=== PATIENT | female | born 1995 | race Hispanic/Latino ===

== ENCOUNTER 2019-11-18 01:28 | Inpatient (IN) | payer MEDICAID ==
[2019-11-18 01:40] VITALS: BMI 25.9
[2019-11-18] MEDS ORDERED: hydrALAZINE 20 MG/ML VIAL SLOW IVP PRN ×3 (02:17→12:55)
[2019-11-18] MEDS ORDERED: HYDROcodone/Acetaminophen 5/325 mg Tablet PO PRN (06:40)
[2019-11-18] MEDS ORDERED: NS / Oxytocin 40 units/1000ml 1,000 ML IV PRN ×2 (06:40→12:17)
[2019-11-18] MEDS ORDERED: Butorphanol Tartrate 1 MG/ML VIAL SLOW IVP PRN (06:40)
[2019-11-18] MEDS ORDERED: Ondansetron PF 4 MG/2 ML Vial IVP PRN ×2 (06:40→08:28)
[2019-11-18] MEDS ORDERED: Lidocaine 1% (PF) 30 ML VIAL SC PRN (06:40)
[2019-11-18] MEDS ORDERED: Ibuprofen 800 MG TAB PO PRN (06:40)
[2019-11-18] MEDS ORDERED: Lactated Ringer's 1,000 ML IV SCH ×2 (06:45)
[2019-11-18] MEDS ORDERED: Penicillin G Potassium 5 MILL.UNITS in Sodium Chloride 0.9% 100 ML IVPB SCH (06:45)
[2019-11-18] MEDS ORDERED: Penicillin G 2.5 MILL.units 2.5 MILL.UNITS in Premix Bag 1 BAG IVPB SCH (06:45)
--- NOTE | 2019-11-18 07:08 | PRG ---
DATE OF SERVICE: 11/18/2019 PRIMARY COMMUNICATIONS ADVISOR: Tanika Marmolejo MD CHIEF COMPLAINT: Abdominal pain. HISTORY OF PRESENT ILLNESS: The patient is a 24-year-old G2, P1 female with an intrauterine at 37 weeks and 3 days, presenting to Labor and Delivery with a 2-hour history of worsening abdominal pain. She is reporting contractions about every 5 to 6 minutes. She denies any vaginal bleeding or leakage of fluid. She denies any fever, fall, cough, headache, chest pain, shortness of breath, nausea, vomiting, diarrhea, constipation, hip problems, knee problems, muscle weakness. She denies urinary urgency or frequency. PAST MEDICAL HISTORY: Anemia. PAST SURGICAL HISTORY: Negative. ALLERGIES: NO KNOWN DRUG ALLERGIES. SOCIAL HISTORY: Denies drug alcohol or tobacco use. MEDICATIONS: vitamins. OBSTETRICAL LABS: Unavailable at the time of dictation. REVIEW OF SYSTEMS: Per HPI. PHYSICAL EXAMINATION: VITAL SIGNS: Blood pressure is 116/73, heart rate of 69, temperature 97.8, respiratory rate of 18. GENERAL: She appears to be in no acute distress. She is alert, oriented, cooperative, and pleasant to interact with. HEENT: Head is normocephalic and atraumatic. LUNGS: Clear to auscultation bilaterally. HEART: Has a regular rate and rhythm. ABDOMEN: Gravid, soft, nontender. EXTREMITIES: Nontender. Has some bilateral edema typical with . : The cervix was checked by the nursing staff, it was 3, 70, -3 station and is changed to 5, 80, -3 station. heart tracing shows the fetus with a baseline in 120s with moderate long-term variability, positive 15 x 15 accelerations, no decelerations. Contractions about every 2 to 5 minutes with some irritability underneath. ASSESSMENT AND PLAN: The patient is a 24-year-old G2, P1 female with an intrauterine at 37 weeks and 3 days, showing evidence of labor. Fetus has a category 1 tracing and a reactive NST. The patient is being admitted to Dr. Marmolejo for management. Job ID: [id number]
[2019-11-18] MEDS ORDERED: Fentanyl 4 mcg/Bup 0.1% Cadd 100 ML ONE (07:14)
[2019-11-18] MEDS ORDERED: Misoprostol 200 MCG TAB ONE (07:39)
[2019-11-18 07:46] LABS: Hemoglobin 9.7 g/dL (12.0-16.0); Mean Corpuscular HGB CONC 33.8 g/dL (32.0-36.0); Mean Corpuscular Hemoglobin 26.3 pg (27.0-31.0); Mean Corpuscular Volume 77.7 fL (78.0-98.0); Mean Platelet Volume 12.5 fL (7.4-10.4); Platelet Count 182 thou/uL (130-400); RBC Distribution Width 14.4 % (11.5-14.5); White Blood Cell (WBC) Count 10.6 thou/uL (4.8-10.8)
[2019-11-18 07:49] LABS: HBSAg Index 0.17 S/CO (0-0.99); Hep B Surf Ag Non-Reactive S/CO (NonReactive); Syphilis Antibody Nonreactive (Nonreactive); Syphilis Antibody Index 0.04 S/CO (<1.00 Non-Reactive)
[2019-11-18] MEDS ORDERED: Fentanyl 100 MCG/2 ML VIAL ONE (08:00)
[2019-11-18] MEDS ORDERED: Promethazine HCl 25 MG/ML VIAL IM PRN (08:28)
[2019-11-18] MEDS ORDERED: EPHEDRINE 25 MG/5 ML SYRINGE SLOW IVP PRN (08:28)
[2019-11-18] MEDS ORDERED: Naloxone HCl 0.4 mg/ml Vial IVP PRN ×2 (08:28)
[2019-11-18] MEDS ORDERED: diphenhydrAMINE 50 MG/ML VIAL IVP PRN (08:28)
[2019-11-18] MEDS ORDERED: Lactated Ringer's 500 ML IV PRN (08:28)
[2019-11-18] MEDS ORDERED: Acetaminophen 325 MG TAB PO PRN (08:28)
[2019-11-18] MEDS ORDERED: Fentanyl 4 mcg/Bupivacaine 0.1% Cassette 100 ML EPIDURAL SCH (08:30)
[2019-11-18] MEDS ORDERED: Communication Order-Pharmacy FS SCH (08:30)
--- NOTE | 2019-11-18 10:01 | PDOC.EVN ---
Event Note - Event Note Event Note: Asked to AROM by Dr. Marmolejo. FHTs stable, no decels. Irregular UCs seen. SVE /-1, 0 vtx. AROM- clear.
[2019-11-18] MEDS ORDERED: NS w/ Oxytocin 10 units 500 ML ONE (10:30)
[2019-11-18] MEDS ORDERED: NS w/ Oxytocin 10 units 500 ML IV SCH (12:30)
--- NOTE | 2019-11-18 12:54 | PDOC.OPDEL ---
OB Operative/Delivery Note Delivery Dr/Surgeon: Jaleel Pre-Delivery Diagnosis: active labor Procedure/Post Delivery Dx: spontaneous vaginal delivery Weeks gestation: 37 Anesthesia: epidural - Findings A Sex: male - 1 min: 7 - 5 min: 9 - Additional Findings/Plan Placenta delivered: spontaneous Repaired Obstetrical Laceration: none Estimated blood loss: 250ml qbl Compilations/Other Findings: npne Post delivery plan: routine recovery
[2019-11-18] MEDS ORDERED: Milk Of Magnesia 30 ML UDCUP PO PRN (12:55)
[2019-11-18] MEDS ORDERED: Adacel (T-DAP) 0.5 ML SYRINGE IM ONE (12:55)
[2019-11-18] MEDS ORDERED: Bisacodyl 10 MG SUPP PR PRN (12:55)
[2019-11-18] MEDS ORDERED: Lanolin Ointment 7 GM TUBE TOP PRN (12:55)
[2019-11-18] MEDS ORDERED: NS / Oxytocin 40 units/1000ml 1,000 ML IV SCH (13:00)
[2019-11-18] MEDS: Ferrous Sulfate 325 MG TAB PO SCH (17:18)
[2019-11-18] MEDS ORDERED: traMADol HCl 50 MG TAB PO PRN (17:29)
[2019-11-18] MEDS: Ibuprofen 800 MG TAB PO PRN (17:38)
[2019-11-18] MEDS: Docusate Calcium (SURFAK) 240 MG CAP PO SCH (23:03)
[2019-11-19 06:08] VITALS: TEMP 97.6
--- NOTE | 2019-11-19 06:39 | PDOC.PP ---
Post Progress Note Post Day #: PPD1 Subjective: Resting, no c/o. PO intake tolerated: yes Flatus: yes Ambulation: yes Vital Signs (12 hours) Temp Pulse Resp BP Pulse Ox 11/19/19 05:20 97.6 F 62 16 105/65 11/19/19 00:20 98.2 F 62 16 103/68 11/18/19 19:50 98.0 F 65 16 102/59 L 98 Weight Weight 62.142 kg - Physical Examination General: NAD Respiratory: non-labored breathing Neurological: no gross focal deficits Psychiatric: normal affect Result Diagrams: 11/18/19 07:08 Additional Labs: Post Labs Blood Type O POSITIVE 11/18/19 07:08 Hep Bs Antigen Non-Reactive S/CO (NonReactive) 11/18/19 07:08 - Assessment/Plan Doing well s/p DC home Precautions. RTC [address] Marmolejo
[2019-11-19] MEDS: Docusate Calcium (SURFAK) 240 MG CAP PO SCH (08:17)
[2019-11-19] MEDS: Ferrous Sulfate 325 MG TAB PO SCH (08:17)
[2019-11-19] MEDS: Ibuprofen 800 MG TAB PO PRN (08:17)
[2019-11-19 08:38] VITALS: BP 110/69
[2019-11-19] MEDS ORDERED: Prenatal Vitamin 1 TAB PO SCH (09:00)
== END 2019-11-19 16:25 | disposition home or self-care (01) | DRG 807 ==
LOC: L&D/OP 01:28 → L&D 06:30 → 3SW 14:55
PROVIDERS: ADMIT Obstetrics & Gynecology; ATTEND Obstetrics & Gynecology
PROC: 10E0XZZ Delivery of Products of Conception, External Approach (ICD-10-PCS; principal; 2019-11-18)
PROC: 10907ZC Drainage of Amniotic Fluid, Therapeutic from Products of Conception, Via Natural or Artificial Opening (ICD-10-PCS; 2019-11-18)
DX: O80 Encounter for full-term uncomplicated delivery (principal); Z37.0 Single live birth; Z3A.38 38 weeks gestation of pregnancy
CPT/HCPCS: 36415; 51702; 85027; 86780; 86850; 86900; 86901; 87340; 90715; 99285; J2001; J2590; J3010